=== PATIENT | male | born 1985 | race Caucasian/White ===

== ENCOUNTER 2025-05-11 01:20 | Emergency (ER) | payer MEDICAID ==
[~2025-05-11] VITALS: Ht 175.3 cm; Wt 72.7 kg
[~2025-05-11 01:20] MED LIST: VALA10002 PO
[2025-05-11 01:22] VITALS: BP 153/102; PULSE 87; RESP 16; TEMP 98.1; O2SAT 98
--- NOTE | 2025-05-11 01:31 | Physician Documentation ---
History of Present Illness ~ Chief Complaint: Medical Clearance Stated Complaint: MED CLEARANCE Time Seen by MD: 01:31 Primary Medical Doctor: None HPI 39-year-old male who presents in police custody for medical clearance. Police tell me that the only reason he is here is because his blood pressure was elevated, and so he needs medical clearance. No other concerns from the police. The patient tells me that he has a history of high blood pressure, but is not on medications. He denies any chest pain, shortness of breath, headache, or other associated symptoms. He does tell me that he feels like he has some benavidez on my neck. He will not tell me what happened to his neck, if he was in a fight, got injured, or other. I asked him multiple times and he refused to tell me. He tells me please just kennedy it down in my record . No other acute concerns. Medication Reconciliation Allergies: Coded Allergies: No Known Allergies (Unverified , 05/11/25) Scheduled Valacyclovir HCl (Valtrex), 1 TAB PO Q8H Past Medical History Past Medical History: No Pertinent History Past Surgical History: no surgical history Lives with: Family Lives In: Home Occupation: employed Review of Systems Musculoskeletal: Reports: neck pain Physical Exam Vital Signs: Temperature: 98.1, Source: Oral, Heart Rate: 87, Respiratory Rate: 16, BP: 153/102, Pulse Oximetry: 98, Weight: 72.730 Oxygen Flow Rate: 0 Physical Exam General: This is a thin young man sitting in a chair, with handcuffs, police at bedside HEENT: No trauma to the scalp. Oropharynx appears dry Neck: The patient has several linear abrasions around his lower neck and upper chest. No significant swelling or edema to the neck. No stridor. Heart: Regular rate and rhythm, normal-appearing peripheral perfusion Lungs: Clear breath sounds bilateral, normal work of breathing, normal oxygen saturation on room air Abdomen: Soft, nondistended Extremities: Warm and well-perfused, no significant traumatic findings Neuro: Alert and oriented Psychiatric: Flattened affect, does not answer all questions, appears possibly intoxicated Progress Results/Orders Results/Orders Vital Signs 05/11/25 01:22 Temp 98.1 Pulse 87 Resp 16 B/P (MAP) 153/102 Pulse Ox 98 O2 Flow Rate 0 Medical Decision Making Differential Dx:Considerations: Include: Intoxication-Alcohol, Intoxication- Other drug, Substance abuse disorder, Cervical spine injury, Abrasion, Contusion, Medically stable Assessment The patient presents for medical clearance, because his blood pressure was elevated. Here in the ED, his blood pressure is slightly elevated, but not to a dangerous level. Further he has no chest pain, shortness of breath, or evidence of a dangerous complication or hypertensive emergency. He does have some nonspecific abrasions around his neck, but will not tell me what happened to his neck. No evidence of dangerous neck swelling or deep space neck infection. At this time, he does not appear to have an acute medical or surgical emergency. I feel he is safe for discharge in police custody. Return precautions given. [facility] staff were instructed to monitor his blood pressure and help arrange outpatient follow up for further evaluation treatment of his blood pressure at time of discharge from the halfway. Departure Time of Disposition: 01:39 Disposition: 01 HOME / SELF CARE / HOMELESS Impression: Primary Impression: Neck abrasion Additional Impression: Hypertension Referrals: NO PRIMARY CARE PROVIDER (PCP) Education Educated: Patient Educated regarding: diagnosis, need for follow up Signature Scribe Signature: na Attestation: SONAM Collins MD May 11, 2025 01:31
== END 2025-05-11 01:54 | disposition home or self-care (01) ==
LOC: ER 01:20
DX: S10.81XA Abrasion of other specified part of neck, initial encounter (principal); I10 Essential (primary) hypertension; Z79.899 Other long term (current) drug therapy; Y04.0XXA Assault by unarmed brawl or fight, initial encounter; Y93.89 Activity, other specified; Y92.89 Other specified places as the place of occurrence of the external cause; Y99.8 Other external cause status
CPT/HCPCS: 99283